=== PATIENT | female | born 1970 | race Caucasian/White ===

== ENCOUNTER 2019-04-19 10:24 | Inpatient (IN) | payer OTHER ==
[~2019-04-19] VITALS: Ht 160 cm; Wt 70.8 kg
[~2019-04-19 10:24] MED LIST: IBUPROFEN 200200 M1 PO; PROGESTERONE PO; PROGESTERONE100 MG PO; ZOCOR 10 MG TAB10 M1 PO
[2019-04-19 10:58] VITALS: BP 113/54
[2019-04-19 11:01] LABS: URINE BILIRUBIN NEGATIVE (Negative); URINE BLOOD TRACE (Negative); URINE CLARITY CLEAR; URINE COLOR YELLOW; URINE GLUCOSE-RANDOM* NEGATIVE (Negative); URINE KETONES 1+ (Negative); URINE LEUKOCYTES NEGATIVE (Negative); URINE NITRITE NEGATIVE (Negative); URINE PROTEIN (DIPSTICK) NEGATIVE (Negative); URINE UROBILINOGEN 0.2 E.U./dl (0.2-1.0)
[2019-04-19 11:22] LABS: HEMATOCRIT 38.6 % (37.0-47.0); MCHC 33.7 g/dL (28.0-37.0); RBC 4.34 mil/uL (4.20-5.00); RDW 13.2 % (10.5-14.5); WBC 6.7 thou/uL (4.0-11.0)
[2019-04-19 11:34] LABS: CALCIUM 9.3 mg/dL (8.5-10.1); POTASSIUM 3.8 mmol/L (3.5-5.1)
[2019-04-19 20:50] VITALS: BP 118/67
[2019-04-20 00:40] VITALS: BP 105/49
--- NOTE | 2019-04-20 04:44 | NUR ---
PATIENT ALERT AND ORIENTED X4. C/O PAIN, MED GIVEN. WANTED TO STAND BY BED FOR A FEW MINUTES. STOOD FOR A SHORT WHILE AND BECAME NAUSEATED, VOMITED SMALL AMOUNT OF YELLOW FLUID. STATED FELT BETTER AFTER BEING ABLE TO STAND. INCISION ON ABD INTACT WITH DERMABOND. NO REDNESS, DRAINAGE NOTED. MAYS PATENT. SLEPT OFF AND ON DURING NIGHT.
[2019-04-20 05:28] LABS: HEMATOCRIT 35.4 % (37.0-47.0); HEMOGLOBIN 11.6 gm/dL (12.0-15.0); MCH 29.3 pg (26.0-34.0); MCHC 32.9 g/dL (28.0-37.0); MCV 89.1 fL (80.0-100.0); RBC 3.97 mil/uL (4.20-5.00); WBC 14.3 thou/uL (4.0-11.0)
[2019-04-20 09:58] VITALS: BP 104/55
--- NOTE | 2019-04-20 15:11 | NUR ---
PT A&OX4, IV INTACT IN R WRIST. CONT. IV FLUIDS HAVE BEEN DISCONTINUED AND CATH REMOVED. TOLERATING PO PAIN MEDS WELL AND HAS A GOOD APPETITE. AMBULAITING WITH STANDBY ASSIST. WILL MONITOR FOR FIRST POST CATH VOID. FAMILY IS AT THE BEDSIDE.
[2019-04-20 18:30] VITALS: BP 115/59
[2019-04-20 20:09] VITALS: BP 118/72
[2019-04-21 05:03] VITALS: BP 100/58
[2019-04-21] MEDS ORDERED: HYDROCODON-ACE1 EAC7 PO (07:21)
[2019-04-21] MEDS ORDERED: IBUPROFEN 400400 M2 PO (07:21)
[2019-04-21] MEDS ORDERED: COLACE 100 MG100 MG PO (07:21)
[2019-04-21 08:03] VITALS: BP 118/63
[2019-04-21 08:56] VITALS: BP 118/63
--- NOTE | 2019-04-21 10:13 | NUR ---
DC ORDERS RECEIVED. IV REMOVED FROM R WRIST. DC INSTRUCTIONS, SCRPTS AND F/U APPOINTMENT REVIEWED WITH PT. VOLUNTEER ESCORTED PT TO MAIN ENTRANCE.
--- NOTE | 2019-04-22 12:06 | PATH ---
[facility] [place] [address] PATHOLOGY RPT PROCEDURE Name: KAT DAVIS Room #: 438-P [facility] IN M.R.#: [id number] Admission: 04/19/19 Date of : 66 Discharge: 04/21/19 Report #: [id number] Path Case #: [id number] L[facility] Accession Number: [id number] . 01 Material submitted: . PART A: uterus - UTERUS PART B: fallopian tube - BILATERAL FALLOPIAN TUBES. Modifiers: bilateral . 01 Clinical history: . Specific abnormal uterine vaginal bleeding Leiomyoma of uterus, unspecified . 02 Frozen section diagnosis: . INTRAOPERATIVE GROSS CONSULTATION DIAGNOSIS: (Carson Parker M.D.): . Uterus, hysterectomy: - 3.5 cm endocervical canal consistent with cervical tissue. . These findings are displayed to Dr. Karuna Corea in OR2 at [facility]. . INTRAOPERATIVE CONSULTATION GROSS DESCRIPTION: The specimen is received fresh from the OR labeled with the patient's name, and "uterus" consists of a 178.5 gram uterus measuring 10 x 7.8 x 5.5 cm. The anterior parametrial tissue underneath the resection is inked black. At this point the specimen is bivalved and it shows a 3.5 cm shiny endocervical canal with no lesions identified. The endometrial cavity is inverted triangular and measures 5.3 cm. There is a large fibroid mass present measuring approximately 5.5 x 5.4 x 5.6 cm. These findings are displayed to Dr. Karuna Corea. (IUV/db; 04/19/2019) . Frozen section performed at [facility], [address] , [place] [address]. IZV/LBQ . 02 Diagnosis: A. Uterus, hysterectomy: - Disordered proliferative endometrium; negative for hyperplasia, atypia or malignancy. - Leiomyoma measuring 5.6 cm in greatest dimension. - Endocervical canal showing mild chronic endocervicitis; negative for dysplasia. - No ectocervical epithelium or transformation zone present. (Please see comment). . B. Fallopian tubes, bilateral, salpingectomy: [facility] [address] [place] [address] PATHOLOGY RPT PROCEDURE Name: KAT DAVIS Room #: 438-P [facility] IN M.R.#: [id number] Admission: 04/19/19 Date of : 66 Discharge: 04/21/19 Report #: [id number] Path Case #: [id number] - Congested fallopian tubal tissue. - No significant diagnostic abnormalities present. . (IUV:bricklayer apprentice; 04/21/2019) MBR 04/21/2019 1334 Local . 02 Comment: History of cervical LEEP is provided at the time of the intraepithelial consult by Dr. Corea. The entire cervical tissue along with its intact mucosa is submitted for microscopic examination. There is no transformation zone or ectocervix present. This may be due to the LEEP procedure. There is no dysplasia present in any of the sections examined. (IUV:bricklayer apprentice; 04/21/2019) . 02 Electronically signed: . Terra Parker MD, Pathologist NPI- [id number] . 01 Gross description: . SEE GROSS INTRAOPERATIVE CONSULTATION GROSS DESCRIPTION. . A. Further serial sectioning reveals the "fibroid mass" measures 5.6 x 5.5 x 5.3 cm showing cerebriform, whorled, pink-white cut surfaces with scattered hemorrhage. No calcifications or necrosis is identified. The minimal identifiable endometrium is pink-mayers measuring 0.1-0.2 cm. Skating Rink Ice Maker sections are submitted as follows: . A1: Anterior cervix A2: Posterior cervix A3: Anterior endomyometrium A4: Posterior endomyometrium A5-A7: Nodule . B. The specimen is received in formalin, labeled "Davis, Kat, bilateral fallopian tubes" and consists of 2 purple-pink from rated fallopian tube segments measuring 4.3 cm in length and up to 0.5 cm in diameter and 4.5 cm in length and up to 0.6 cm in diameter. The shorter tube is inked black. Sectioning each reveals a well-defined lumen and advertising account representative sections are submitted in B1. (SDY; 04/20/2019) . After initial microscopic examination the remainder of the endocervical canal is submitted as follows: . A8-A10: Anterior A11-A15: Posterior (SDY; 04/21/2019) [address] [address] PATHOLOGY RPT PROCEDURE Name: KAT DAVIS Room #: 438-P [facility] IN M.R.#: [id number] Admission: 04/19/19 Date of : 66 Discharge: 04/21/19 Report #: [id number] Path Case #: [id number] SYU/LBQ 04/21/2019 1400 Local . 02 Pathologist provided ICD-10: N85.9, D25.9, N72 . 02 CPT . 022299, 618122, 138262 Specimen Comment: A courtesy copy of this report has been sent to Specimen Comment: [phone], . Specimen Comment: Report sent to / DR IGLESIAS Performed at: [address] [facility], [place] [id number] MD Burak Dodge MD Phone: [phone] Performed at: [address] [facility] [id number] MD Terra Parker MD Phone: [phone]
--- NOTE | 2019-05-13 09:46 | O ---
[facility] [place] [address] OPERATIVE REPORT Name: RYANDONOVAN JANG Room #: 438-P [facility] IN M.R.#: [id number] Admission: 04/19/19 Attend Phys: Karuna Corea DO Discharge: 04/21/19 Date of : 66 Report #: [id number] THIS REPORT FOR: //name// CC: Karuna Dowling DATE OF SERVICE: 04/19/2019 PREOPERATIVE DIAGNOSES: 1. Irregular menses. 2. Uterine fibroids. 3. Pelvic pain. POSTOPERATIVE DIAGNOSES: 1. Irregular menses. 2. Uterine fibroids. 3. Pelvic pain. OPERATIVE PROCEDURE: Total abdominal hysterectomy with bilateral salpingectomy. SURGEON: Karuna Corea DO ANESTHESIA: General. INTRAVENOUS FLUIDS: 1200 mL. URINE OUTPUT: 400 mL. ESTIMATED BLOOD LOSS: 50 mL. COMPLICATIONS: None. PATHOLOGY: Uterus with possible cervix, bilateral fallopian tubes. DESCRIPTION OF PROCEDURE: The patient was taken to the operating room, where general anesthesia was administered and found to be adequate. She was then prepped and draped in normal sterile fashion in dorsal lithotomy position. Cantu catheter was placed in the patient's bladder. The bladder was drained of urine. A weighted speculum was placed in the patient's vagina, and it was noted that her cervix appeared to be flush with her vaginal tissue. There was inability to grasp the cervix as well as put, nor could a uterine manipulator be placed through the cervix. Due to this, it was decided at this time we would proceed with an abdominal hysterectomy. The patient was repositioned in supine position and she was reprepped and draped. Sterile gloves were changed and attention was turned to the abdomen where a Pfannenstiel skin incision was made approximately 2 cm above the symphysis pubis. It was carried down to the [address] [address] OPERATIVE REPORT Name: DONOVAN DAVIS Room #: 438-P [facility] IN M.R.#: [id number] Admission: 04/19/19 Attend Phys: Karuna Corea DO Discharge: 04/21/19 Date of : 66 Report #: [id number] underlying layer of fascia. The fascia was nicked in the midline, and the incision was extended laterally with Ascencio scissors. The superior aspect of the fascial incision was grasped with Aishwarya clamps, elevated and the underlying rectus muscle dissected off bluntly as well as with Ascencio scissors. Attention was then turned to the inferior aspect of this incision, which in a similar fashion was grasped with Aishwarya clamps, elevated and the underlying rectus muscle dissected off bluntly and with Ascencio scissors. The rectus muscles were in the midline and the peritoneum was identified, tented upward and entered sharply with Metzenbaum scissors. The peritoneal incision was then extended superiorly and inferiorly with good visualization. An O'Landon-O'Humphreys retractor was then placed in the patient's abdomen and the bladder blade was attached. The bowel was packed cephalad with moist laparotomy sponges and the uterus was then grasped with a Carmen. The right fallopian tube was identified, and it was transected using a handheld Gyrus underneath the fallopian tube across the mesosalpinx. The uteroovarian ligament was then transected using the Gyrus. Excellent hemostasis was noted. This was followed by the round ligament on the right. Again, excellent hemostasis was noted. This exact same procedure was performed in the leftward pelvis. Again, the left fallopian tube was grasped at its fimbriated end and transected beneath across the mesosalpinx. The left utero-ovarian ligament was then transected followed by the left round ligament. Attention was returned to the right pelvis, where the broad ligament was transected using the handheld Gyrus followed by the left broad ligament. The vesicouterine peritoneum was then identified, tented upward and transected with Metzenbaum scissors. The vesicouterine peritoneum was then bluntly dissected from the anterior uterus and cervix. Straight Anita clamps were then used to clamp the uterine arteries cardinal ligament complexes bilaterally. These were then cut and tied with 0 Vicryl. Excellent hemostasis was noted at bilateral pedicles. Z clamps were then used to clamp below the palpable cervical stump, and using a Lai scissors, the uterus was transected across at what appeared to be the cervicovaginal junction. The specimen was handed off to pathology for a gross description to identify the cervix. The pathologist returned and confirmed that there was cervical tissue that was noted; however, until microscopy could be performed, is unable to delineate whether a transition zone could be identified. Excellent hemostasis was again noted of all pedicles, and irrigation was performed using sterile water. The vaginal cuff was then closed with interrupted Anita stitches underneath the Z clamps. The Z clamps were removed. Small amount of bleeding was noted, and using 0 Vicryl, the vaginal cuff was oversewn. Bovie cautery was used to minimize some bleeding of the vesicouterine peritoneum. This was followed by placement of Adam. Excellent hemostasis was then noted. Again, all pedicles were evaluated and hemostasis was noted. All sponges were then removed from the patient's abdomen. The O'Landon-O'Humphreys retractor was removed from the patient's abdomen as well. The muscle and peritoneum were reapproximated with 2-0 Vicryl. Excellent hemostasis was noted to the muscles. The fascia was reapproximated with 0 Vicryl. Irrigation was used in subcutaneous tissue. Bovie cautery was used to obtain hemostasis. Subcutaneous [facility] [address] [place] [address] OPERATIVE REPORT Name: DONOVAN DAVIS Room #: 438-P [facility] IN M.R.#: [id number] Admission: 04/19/19 Attend Phys: Karuna Corea DO Discharge: 04/21/19 Date of : 66 Report #: [id number] tissue was then reapproximated using 3-0 plain, and the skin was closed in a subcuticular fashion using 4-0 Monocryl. The patient tolerated the procedure well. Sponge, lap and needle counts were reported as correct, and the patient was taken to the recovery room in stable condition. <ELECTRONICALLY SIGNED> By: Karuna Corea DO 05/13/19 0946 0401 0450 Karuna Corea DO /nt
== END 2019-04-21 10:25 | disposition home or self-care (01) | DRG 743 ==
LOC: OR 10:24 → TBA 10:32 → OR 11:34 → 4S 17:26 → OR 17:27 → 4S 04-21 10:25
PROVIDERS: ADMIT Obstetrics & Gynecology
PROC: 0UT70ZZ Resection of Bilateral Fallopian Tubes, Open Approach (ICD-10-PCS; principal; 2019-04-19)
PROC: 0UT90ZZ Resection of Uterus, Open Approach (ICD-10-PCS; principal; 2019-04-19)
DX: D25.9 Leiomyoma of uterus, unspecified (principal); N94.89 Other specified conditions associated with female genital organs and menstrual cycle; Z88.0 Allergy status to penicillin; Z88.2 Allergy status to sulfonamides; Z88.8 Allergy status to other drugs, medicaments and biological substances; Z23 Encounter for immunization
CPT/HCPCS: 10195; 50010; 50093; 50101; 50249; 50386; 50400; 50455; 50555; 50558; 50962; 51489; 51687; 52265; 52287; 53307; 54118; 56524; 56525; 56526; 56719; 62110; 62900; 70005